=== PATIENT | female | born 1965 | race Hispanic/Latino ===

== ENCOUNTER 2017-08-12 05:57 | Emergency (ER) | payer OTHER ==
[~2017-08-12 05:57] MED LIST: ACET1TAB12 PO; DOXY100C2 PO; LEVO500T2 PO; SAXA1TBM3 PO
[2017-08-12] MEDS ORDERED: ALBUTEROL SULFATE 0.083% 2.5 MG/3 ML INH IH ONE (06:28)
[2017-08-12] MEDS ORDERED: IPRATROPIUM 0.5 MG/2.5 ML INH IH ONE (06:28)
[2017-08-15] MEDS ORDERED: METHYLPREDNISOLONE SOD SUCC 125MG/2ML VIAL ONE (17:25)
[2017-08-15] MEDS ORDERED: DiphenhydrAMINE HCL 50 MG/ML VIAL ONE (17:25)
[2017-08-15] MEDS ORDERED: HEPARIN SODIUM 1000UNIT/ML 10ML VIAL ONE (17:47)
== END 2017-08-12 07:16 | disposition home or self-care (01) ==
LOC: EDH 05:57
DX: J98.01 Acute bronchospasm (principal); J06.9 Acute upper respiratory infection, unspecified; E11.9 Type 2 diabetes mellitus without complications; Z98.890 Other specified postprocedural states
CPT/HCPCS: 87880; 94640

== ENCOUNTER 2017-12-25 17:38 | Emergency (ER) | payer OTHER | END 2017-12-25 18:43 | disposition home or self-care (01) | LOC: EDH 17:38 | DX: L01.03 Bullous impetigo (principal); E11.9 Type 2 diabetes mellitus without complications; Z89.421 Acquired absence of other right toe(s) ==

== ENCOUNTER 2018-08-26 08:30 | Emergency (ER) | payer BC, OTHER ==
[2018-08-26] MEDS ORDERED: LIDOCAINE HCL-MPF 1% 2ML VIAL ONE (08:57)
[2018-08-26] MEDS ORDERED: CEFTRIAXONE SODIUM 1 GM ONE (08:57)
[2018-08-26] MEDS ORDERED: TETANUS/DIPHTHERIA TOXOID [ADULT] 0.5 ML VIAL IM ONE (08:58)
== END 2018-08-26 09:18 | disposition home or self-care (01) ==
LOC: EDH 08:30
DX: L03.032 Cellulitis of left toe (principal); E11.9 Type 2 diabetes mellitus without complications; Z89.421 Acquired absence of other right toe(s)
CPT/HCPCS: 90471; 90714; 96372; 99284; J0696; J3490